=== PATIENT | male | born 1975 | race Caucasian/White ===

== ENCOUNTER 2020-08-23 15:04 | Observation (INO) | payer OTHER ==
[2020-08-23 15:31] LABS: CHLORIDE,CL 106 mEq/L (98-106); SODIUM,NA 142 mEq/L (136-145)
[2020-08-23] MEDS ORDERED: Iopamidol 755 Mg/ML 100 ML Bottle IVPUSH ONE (16:09)
[2020-08-23] MEDS ORDERED: Acetaminophen 325 MG Tab PO PRN (17:17)
[2020-08-23] MEDS ORDERED: Apixaban 5 MG Tab PO ONE (17:30)
[2020-08-23] MEDS: Apixaban 5 MG Tab PO SCH (18:32)
[2020-08-23] MEDS ORDERED: DICLOFENAC SODIUM 100 MG PO SCH (20:00)
[2020-08-24] MEDS ORDERED: Pantoprazole 40 MG Tab.CR PO SCH (07:00)
[2020-08-24 07:43] LABS: CHLORIDE,CL 106 mEq/L (98-106); SODIUM,NA 142 mEq/L (136-145)
[2020-08-24] MEDS ORDERED: Loratadine 10 MG Tab PO SCH (08:00)
[2020-08-24] MEDS: Apixaban 5 MG Tab PO SCH (08:09)
--- NOTE | 2020-08-24 09:25 | PCM.DCSUM1 ---
Discharge Summary - Hospital Course HPI Initial Comments: Armand is a 45 yo male who was seen by Katie Julian yesterday in clinic with concerns of shortness of breath/cold symptoms. He initially thought it was secondary to shoveling soybeans and grain all last week but found with any exertion he would get short of breath. Thorough work up yesterday did show an elevated d-dimer and CTA of the chest completed. CTA did show bilateral pulmonary emboli. Patient was admitted to the hospital for cardiac monitoring and initiation of Eliquis. Echocardiogram ordered, which is to be completed today. Diagnosis: Stroke: No - Discharge Data Discharge Date: 08/24/20 Discharge Disposition: Home, Self-Care 01 Condition: Good - Referral to Home Health Primary Care Physician: Katie Julian PA-C - Discharge Diagnosis/Problem(s) (1) Pulmonary embolism SNOMED Code(s): 87582978 ICD Code: I26.99 - OTHER PULMONARY EMBOLISM WITHOUT ACUTE COR PULMONALE Status: Acute Current Visit: Yes Qualifiers: Pulmonary embolism type: multiple subsegmental (without acute cor pulmonale) Qualified Code(s): I26.94 - Multiple subsegmental pulmonary emboli without acute cor pulmonale - Patient Summary/Data Hospital Course: Armand had an uneventful hospital stay. Vital signs remained stable. No worsening of symptoms. Denies any concerns. REquesting to be discharged today. - Patient Instructions Diet: Usual Diet as Tolerated Activity: As Tolerated - Discharge Plan *PRESCRIPTION DRUG MONITORING PROGRAM REVIEWED*: No *COPY OF PRESCRIPTION DRUG MONITORING REPORT IN PATIENT SHALOM: No Prescriptions/Med Rec: Apixaban [Eliquis] 10 mg PO BID@0800,1800 6 Days #12 tablet Apixaban [Eliquis] 5 mg PO BID #60 tablet Home Medications: Home Meds Cetirizine [ZyrTEC] 10 mg PO DAILY 08/23/20 [History] Diclofenac Sodium [Diclofenac Sodium ER] 100 mg PO BID 08/23/20 [History] Esomeprazole Magnesium [Nexium] 40 mg PO DAILY 08/23/20 [History] Apixaban [Eliquis] 5 mg PO BID #60 tablet 08/24/20 [Rx] Apixaban [Eliquis] 10 mg PO BID@0800,1800 6 Days #12 tablet 08/24/20 [Rx] Oxygen Therapy Mode: Room Air Patient Handouts: Pulmonary Embolism Referrals: Katie Julian PA-C [Primary Care Provider] - (2 weeks) - Discharge Summary/Plan Comment DC Time >30 min.: Yes Discharge Summary/Plan Comment: Echocardiogram to be completed today. Patient has been stable during his entire stay and requesting to be discharged. Will discharge home on Eliquis and did discuss with patient staying on it for 6 months. Will have him follow up with primary provider in 2 weeks. Patient had negative COVID yesterday and currently waiting for PCR test. Will get COVID antibody test as well today. Discussed with Armand common causes of PE's and if no definitive cause is found, will need coagulation testing done. - General Info Date of Service: 08/24/20 - Review of Systems General: Reports: No Symptoms HEENT: Reports: No Symptoms Pulmonary: Reports: No Symptoms. Denies: Shortness of Breath, Cough, Wheezing Cardiovascular: Reports: No Symptoms. Denies: Chest Pain Gastrointestinal: Reports: No Symptoms Genitourinary: Reports: No Symptoms Musculoskeletal: Reports: No Symptoms Skin: Reports: No Symptoms Neurological: Reports: No Symptoms Psychiatric: Reports: No Symptoms - Patient Data Vitals - Most Recent: Last Vital Signs Temp 97.9 F 08/24/20 08:00 Pulse 89 08/24/20 08:00 Resp 16 08/24/20 08:00 BP 137/89 08/24/20 08:00 Pulse Ox 98 08/24/20 08:00 Weight - Most Recent: 235 lb Lab Results - Last 24 hrs: Laboratory Results - last 24 hr 08/23/20 08/23/20 08/23/20 Range/Units 15:00 15:06 15:16 WBC 7.4 (5.0-10.0) 10^3/uL RBC 5.59 (4.50-6.00) 10^6/uL Hgb 16.2 (14.0-18.0) g/dL Hct 49.1 (40.0-54.0) % MCV 87.8 (82.0-94.0) fL MCH 29.0 (27.0-32.0) pg MCHC 33.0 (33.0-38.0) g/dL RDW Coeff of Melina 13.5 (11.0-15.0) % Plt Count 176 (150-400) 10^3/uL Neut % (Auto) 65.0 (35-85) % Lymph % (Auto) 23.5 (10-55) % Yolo % (Auto) 9.7 (0-16) % Eos % (Auto) 1.3 (0-5) % Baso % (Auto) 0.5 (0-3) % Neut # (Auto) 4.81 (1.80-7.00) 10^3/uL Lymph # (Auto) 1.74 (1.00-4.80) 10^3/uL Yolo # (Auto) 0.72 (0.00-0.80) 10^3/uL Eos # (Auto) 0.10 (0.00-0.45) 10^3/uL Baso # (Auto) 0.04 10^3/uL D-Dimer, Quantitative (0.00-0.50) Sodium (136-145) mEq/L Potassium (3.5-5.0) mEq/L Chloride (98-106) mEq/L Carbon Dioxide (21-32) mmol/L BUN (7-18) mg/dL Creatinine (0.7-1.3) mg/dL Est Cr Clr Drug Dosing Estimated GFR (MDRD) (>=60) mL/min Glucose (75-99) mg/dL Calcium (8.4-10.1) mg/dL Total Bilirubin (0.0-1.0) mg/dL AST (15-37) U/L ALT (12-78) U/L Alkaline Phosphatase (46-116) U/L Lactate Dehydrogenase 287 H (100-190) U/L Creatine Kinase 98 (35-232) U/L Troponin I 0.021 (0.00-0.06) ng/mL C-Reactive Protein (0.2-0.8) mg/dL Total Protein (6.4-8.2) g/dL Albumin (3.4-5.0) g/dL SARS CoV-2 RNA Rapid LIAM Negative (NEGATIVE) 08/23/20 08/23/20 08/24/20 Range/Units 15:16 15:16 07:05 WBC 6.0 (5.0-10.0) 10^3/uL RBC 5.35 (4.50-6.00) 10^6/uL Hgb 15.4 (14.0-18.0) g/dL Hct 47.1 (40.0-54.0) % MCV 88.0 (82.0-94.0) fL MCH 28.8 (27.0-32.0) pg MCHC 32.7 L (33.0-38.0) g/dL RDW Coeff of Melina 13.6 (11.0-15.0) % Plt Count 175 (150-400) 10^3/uL Neut % (Auto) 61.8 (35-85) % Lymph % (Auto) 26.1 (10-55) % Y[place] % (Auto) 9.9 (0-16) % Eos % (Auto) 2.0 (0-5) % Baso % (Auto) 0.2 (0-3) % Neut # (Auto) 3.68 (1.80-7.00) 10^3/uL Lymph # (Auto) 1.55 (1.00-4.80) 10^3/uL Yolo # (Auto) 0.59 (0.00-0.80) 10^3/uL Eos # (Auto) 0.12 (0.00-0.45) 10^3/uL Baso # (Auto) 0.01 10^3/uL D-Dimer, Quantitative 7.99 H (0.00-0.50) Sodium 142 (136-145) mEq/L Potassium 4.1 (3.5-5.0) mEq/L Chloride 106 (98-106) mEq/L Carbon Dioxide 28 (21-32) mmol/L BUN 21 H (7-18) mg/dL Creatinine 1.2 (0.7-1.3) mg/dL Est Cr Clr Drug Dosing TNP Estimated GFR (MDRD) > 60 (>=60) mL/min Glucose 95 (75-99) mg/dL Calcium 9.2 (8.4-10.1) mg/dL Total Bilirubin (0.0-1.0) mg/dL AST (15-37) U/L ALT (12-78) U/L Alkaline Phosphatase (46-116) U/L Lactate Dehydrogenase (100-190) U/L Creatine Kinase (35-232) U/L Troponin I (0.00-0.06) ng/mL C-Reactive Protein 2.8 H (0.2-0.8) mg/dL Total Protein (6.4-8.2) g/dL Albumin (3.4-5.0) g/dL SARS CoV-2 RNA Rapid LIAM (NEGATIVE) 08/24/20 Range/Units 07:05 WBC (5.0-10.0) 10^3/uL RBC (4.50-6.00) 10^6/uL Hgb (14.0-18.0) g/dL Hct (40.0-54.0) % MCV (82.0-94.0) fL MCH (27.0-32.0) pg MCHC (33.0-38.0) g/dL RDW Coeff of Melina (11.0-15.0) % Plt Count (150-400) 10^3/uL Neut % (Auto) (35-85) % Lymph % (Auto) (10-55) % Y[place] % (Auto) (0-16) % Eos % (Auto) (0-5) % Baso % (Auto) (0-3) % Neut # (Auto) (1.80-7.00) 10^3/uL Lymph # (Auto) (1.00-4.80) 10^3/uL Y[place] # (Auto) (0.00-0.80) 10^3/uL Eos # (Auto) (0.00-0.45) 10^3/uL Baso # (Auto) 10^3/uL D-Dimer, Quantitative (0.00-0.50) Sodium 142 (136-145) mEq/L Potassium 4.3 (3.5-5.0) mEq/L Chloride 106 (98-106) mEq/L Carbon Dioxide 26 (21-32) mmol/L BUN 23 H (7-18) mg/dL Creatinine 1.1 (0.7-1.3) mg/dL Est Cr Clr Drug Dosing 93.82 Estimated GFR (MDRD) > 60 (>=60) mL/min Glucose 100 H (75-99) mg/dL Calcium 9.0 (8.4-10.1) mg/dL Total Bilirubin 0.5 (0.0-1.0) mg/dL AST 14 L (15-37) U/L ALT 42 (12-78) U/L Alkaline Phosphatase 66 (46-116) U/L Lactate Dehydrogenase (100-190) U/L Creatine Kinase (35-232) U/L Troponin I (0.00-0.06) ng/mL C-Reactive Protein (0.2-0.8) mg/dL Total Protein 7.3 (6.4-8.2) g/dL Albumin 3.7 (3.4-5.0) g/dL SARS CoV-2 RNA Rapid LIAM (NEGATIVE) Med Orders - Current: Current Medications Acetaminophen (Tylenol) 650 mg PO Q4H PRN PRN Reason: Pain (Mild 1-3)/fever Apixaban (Eliquis) 10 mg PO BID@0800,1800 PENDING SALE TO [facility] Stop: 08/30/20 08:01 Last Admin: 08/24/20 08:09 Dose: 10 mg Documented by: Apixaban (Eliquis) 5 mg PO BID PENDING SALE TO [facility] Loratadine (Claritin) 10 mg PO DAILY PENDING SALE TO [facility] Last Admin: 08/24/20 08:09 Dose: 10 mg Documented by: Non-Formulary Medication (Diclofenac Sodium [Diclofenac Sodium Er]) 100 mg PO BID PENDING SALE TO [facility] Pantoprazole Sodium (Protonix) 40 mg PO ACBREAKFAST PENDING SALE TO [facility] Last Admin: 08/24/20 06:52 Dose: 40 mg Documented by: Discontinued Medications Apixaban (Eliquis) 10 mg PO BID ONE Stop: 08/23/20 17:31 Last Admin: 08/23/20 18:11 Dose: Not Given Documented by: Iopamidol (Isovue-370 (76%)) 100 ml IVPUSH ONETIME ONE Stop: 08/23/20 16:10 Last Admin: 08/23/20 16:22 Dose: 100 ml Documented by: - Exam General: Reports: Alert, Oriented, Cooperative, No Acute Distress Lungs: Reports: Clear to Auscultation, Normal Respiratory Effort Cardiovascular: Reports: Regular Rate, Regular Rhythm, No Murmurs GI/Abdominal Exam: Normal Bowel Sounds, Soft Extremities: Normal Inspection, No Pedal Edema Skin: Reports: Warm, Dry, Intact Psy/Mental Status: Reports: Alert, Normal Affect, Normal Mood
[2020-08-30] MEDS ORDERED: Apixaban 5 MG Tab PO SCH (20:00)
== END 2020-08-24 13:14 | disposition home or self-care (01) ==
LOC: CC.FCMC 15:04 → CC.MS 16:28 → UNDOADMOB 16:28 → CC.MS 17:17
PROVIDERS: ADMIT Physician Assistant Medical; ATTEND Family Medicine
DX: I26.94 Multiple subsegmental thrombotic pulmonary emboli without acute cor pulmonale (principal); Z79.899 Other long term (current) drug therapy; Z88.0 Allergy status to penicillin; Z88.1 Allergy status to other antibiotic agents; Z20.828 Contact with and (suspected) exposure to other viral communicable diseases
CPT/HCPCS: 36415; 71046; 71275; 80048; 80053; 82550; 83615; 84484; 85025; 85379; 86140; 86769; 93005; 93306; 93970; A9270-GY; G0378; Q9967; U0002

== ENCOUNTER 2021-02-03 09:29 | Emergency (ER) | payer OTHER ==
[2021-02-03] MEDS ORDERED: Take Home: Sulfamethoxazole/Trimethoprim 800-160 MG Tab, 2 Tab Pack PO ONE (09:55)
[2021-02-03] MEDS ORDERED: Take Home: predniSONE 20 MG, 2 Tab Pack PO ONE (09:55)
--- NOTE | 2021-02-03 10:01 | EDM.PDOC ---
ED HPI GENERAL MEDICAL PROBLEM - General Chief Complaint: General Stated Complaint: Headache Time Seen by Provider: 02/03/21 10:01 Source of Information: Reports: Patient History Limitations: Reports: No Limitations - History of Present Illness INITIAL COMMENTS - FREE TEXT/NARRATIVE: This patient is a 45 year old male that presents to the ER. Patient reports that since Thursday he has had frontal headache, sinus congestion, sinus pressure, bilateral ears clogged, post nasal gtt, with productive cough. Patient denies n, v, d, f, dizziness, chest pain, shortness of breath, rashes, loss of taste, loss of smell. Onset Date: 01/30/21 Duration: Day(s): (4) Location: Reports: Other (Sinuses) Quality: Reports: Pressure Severity: Moderate Improves with: Reports: None Worsens with: Reports: None Associated Symptoms: Reports: Cough, cough w sputum, Headaches (frontal sinus). Denies: Confusion, Chest Pain, Diaphoresis, Fever/Chills, Loss of Appetite, Malaise, Nausea/Vomiting, Rash, Seizure, Shortness of Breath, Syncope, Weakness - Related Data Allergies Allergy/AdvReac Type Severity Reaction Status Date / Time doxycycline Allergy Cannot Verified 08/23/20 17:15 Remember Penicillins Allergy Cannot Verified 08/23/20 17:15 Remember Home Meds: Home Meds Cetirizine [ZyrTEC] 10 mg PO DAILY 08/23/20 [History] Diclofenac Sodium [Diclofenac Sodium ER] 100 mg PO BID 08/23/20 [History] Esomeprazole Magnesium [Nexium] 40 mg PO DAILY 08/23/20 [History] Apixaban [Eliquis] 5 mg PO BID #60 tablet 08/24/20 [Rx] Apixaban [Eliquis] 10 mg PO BID@0800,1800 6 Days #12 tablet 08/24/20 [Rx] Sulfamethoxazole/Trimethoprim [Bactrim Ds Tablet] 1 each PO BID #16 tablet 02/03/21 [Rx] predniSONE [Prednisone] 20 mg PO DAILY #3 tablet 02/03/21 [Rx] Past Medical History Respiratory History: Reports: PE - Past Surgical History Musculoskeletal Surgical History: Reports: Amputation Other Musculoskeletal Surgeries/Procedures:: traumatic amputation of right thumb Social & Family History - Family History Cardiac: Reports: Blood Clots/VTE/DVT ED ROS GENERAL - Review of Systems Review Of Systems: See Below Constitutional: Reports: No Symptoms HEENT: Reports: Rhinitis, Sinus Problem, Other (bilateral ear pressure/clogged) Respiratory: Reports: Cough, Sputum. Denies: Shortness of Breath, Wheezing Cardiovascular: Reports: No Symptoms Endocrine: Reports: No Symptoms GI/Abdominal: Reports: No Symptoms : Reports: No Symptoms Musculoskeletal: Reports: No Symptoms Skin: Reports: No Symptoms Neurological: Reports: No Symptoms Psychiatric: Reports: No Symptoms Hematologic/Lymphatic: Reports: No Symptoms Immunologic: Reports: No Symptoms ED EXAM, GENERAL - Physical Exam Exam: See Below Exam Limited By: No Limitations General Appearance: Alert, WD/WN, No Apparent Distress Eye Exam: Bilateral Eye: Normal Inspection, PERRL Ears: Normal External Exam, Normal Canal, Hearing Grossly Normal, Normal TMs Ear Exam: Bilateral Ear: Auricle Normal, Canal Normal, TM normal Nose: Normal Inspection, Normal Mucosa, No Blood Throat/Mouth: Normal Lips, Normal Teeth, Normal Gums, Normal Oropharynx, Normal Voice, No Airway Compromise, Other (post nasal gtt) Head: Atraumatic, Normocephalic, Sinus Tenderness (frontal mild. ), Other (Decreased light illumination frontal sinus) Neck: Normal Inspection, Supple, Non-Tender, Full Range of Motion Respiratory/Chest: No Respiratory Distress, Lungs Clear, Normal Breath Sounds, No Accessory Muscle Use Cardiovascular: Normal Peripheral Pulses, Regular Rate, Rhythm, No Edema, No Gallop, No JVD, No Murmur, No Rub Peripheral Pulses: 2+: Radial (L), Radial (R) Extremities: Normal Inspection Neurological: Alert, Oriented Psychiatric: Normal Affect, Normal Mood Skin Exam: Warm, Dry, Intact, Normal Color, No Rash Lymphatic: No Adenopathy Course - Orders/Labs/Meds Meds: Medications Discontinued Medications Generic Name Dose Route Start Last Admin Trade Name Freq PRN Reason Stop Dose Admin Prednisone 1 packet 02/03/21 09:55 Take Home: Prednisone 20 Mg, 2 Tab Pack PO 02/03/21 09:56 ONETIME ONE Trimethoprim/Sulfamethoxazole 2 packet 02/03/21 09:55 Take Home: Sulfamethoxazole/Trimethoprim 800-160 Mg Tab, 2 Tab Pack PO 02/03/21 09:56 ONETIME ONE Departure - Departure Time of Disposition: 10:01 Disposition: Home, Self-Care 01 Condition: Fair Clinical Impression: Acute sinusitis Qualifiers: Sinusitis location: frontal Recurrence: non-recurrent Qualified Code(s): J01.10 - Acute frontal sinusitis, unspecified - Discharge Information *PRESCRIPTION DRUG MONITORING PROGRAM REVIEWED*: Not Applicable *COPY OF PRESCRIPTION DRUG MONITORING REPORT IN PATIENT SHALOM: Not Applicable Prescriptions: Sulfamethoxazole/Trimethoprim [Bactrim Ds Tablet] 1 each PO BID #16 tablet predniSONE [Prednisone] 20 mg PO DAILY #3 tablet Instructions: Sinusitis, Adult, [id number] Forms: ED Department Discharge Additional Instructions: Followup with your primary care provider Return to the ER for worsening of condition or any emergent concerns Increase fluid intake Over the counter medications such as Neti Pot, Saline Rinses, Afrin for 3 days only, Mucinex, other medications that meet your symptoms Prednisone 20mg 1 pill once a day for a total of 5 days #2 take home, #3 to pharmacy Bactrim DS 1 pill twice a day for 10 days #4 take home, #16 to pharmacy Avoid public functions until symptoms have improved - Assessment/Plan Plan: PLEASE SEE RN NOTE FOR PFSH
== END 2021-02-03 10:15 | disposition home or self-care (01) ==
LOC: CC.ED 09:29
DX: J01.10 Acute frontal sinusitis, unspecified (principal); Z86.711 Personal history of pulmonary embolism; Z79.01 Long term (current) use of anticoagulants; Z88.1 Allergy status to other antibiotic agents; Z88.0 Allergy status to penicillin
CPT/HCPCS: 99283; A9270; J7512

== ENCOUNTER → 2021-03-21 | Day surgery (SDC) | payer OTHER ==
[~2021-03-21] MED LIST: Dexamethasone 4 MG/ML SDV ONE; Ketorolac 30 MG/ML SDV ONE; Lidocaine 1% with EPINEPHrine 1:100,000 20 ML MDV ONE; Lidocaine 2% 5 ML SDV ONE; Metoclopramide 10 MG/2 ML SDV ONE; Midazolam 1 MG/ML 2 ML SDV ONE; Ondansetron 4 MG/2 ML SDV ONE; Phenylephrine 1% 10 MG/ML SDV ONE; Propofol 200 MG/20 ML SDV ONE; fentaNYL 100 MCG/2 ML SDV ONE
[2021-03-21] MEDS: Lactated Ringers 1,000 ML IV SCH (09:35)
[2021-03-21] MEDS: Clindamycin Phosphate in D5W 600 MG in Premix Bag 1 BAG IV ONE ×2 (09:54)
--- NOTE | 2021-03-21 13:23 | OR ---
DATE OF OPERATION: 03/21/2021 PREOPERATIVE DIAGNOSIS: UMBILICAL HERNIA. POSTOPERATIVE DIAGNOSIS: UMBILICAL HERNIA. SURGEON: Armand Barrera MD PROCEDURE: OPEN REPAIR OF UMBILICAL HERNIA. ANESTHESIA: General. ESTIMATED BLOOD LOSS: None. SPECIMEN: Preperitoneal fat. INDICATIONS: This 45-year-old male has a symptomatic umbilical hernia. DESCRIPTION OF PROCEDURE: After adequate preparation, a longitudinal incision was made superior to the umbilicus area. This was taken down to the hernia sac which was dissected free from the surrounding subcutaneous tissue. The preperitoneal herniated specimen was amputated at the level of the fascia and then the fascia was closed using two interrupted 0 Prolene sutures. 3-0 Vicryl was used for the subcutaneous tissue and 4-0 Vicryl was used for the skin. 1% Xylocaine with epinephrine was infiltrated into the skin and muscle. BPB/MODL /[id number]
== END ==
LOC: CC.SDS 09:12
PROVIDERS: ATTEND Surgery
DX: K42.9 Umbilical hernia without obstruction or gangrene (principal); K21.9 Gastro-esophageal reflux disease without esophagitis; M06.9 Rheumatoid arthritis, unspecified; Z88.8 Allergy status to other drugs, medicaments and biological substances; Z88.0 Allergy status to penicillin; Z79.899 Other long term (current) drug therapy; Z79.01 Long term (current) use of anticoagulants
CPT/HCPCS: 00750; J1100; J1885; J2250; J2370; J2405; J2704; J2765; J3010; J3490; J7120

== ENCOUNTER 2024-10-14 07:39 | Day surgery (SDC) | payer BC ==
[2024-10-14] MEDS: Lactated Ringers 1,000 ML IV SCH (08:06)
[2024-10-14] MEDS ORDERED: Flumazenil 0.1 MG/ML 10 ML MDV ONE (08:10)
[2024-10-14] MEDS ORDERED: Ketamine 200 MG/20 ML MDV ONE (08:10)
[2024-10-14] MEDS ORDERED: fentaNYL 50 MCG/ML SDV ONE (08:10)
[2024-10-14] MEDS ORDERED: Propofol 200 MG/20 ML SDV ONE (08:10)
[2024-10-14] MEDS ORDERED: Midazolam 1 MG/ML 2 ML SDV ONE (08:10)
== END 2024-10-14 09:20 | disposition home or self-care (01) ==
LOC: CC.SDS 07:39
PROVIDERS: ATTEND Family Medicine
DX: Z12.11 Encounter for screening for malignant neoplasm of colon (principal); K21.9 Gastro-esophageal reflux disease without esophagitis; M45.9 Ankylosing spondylitis of unspecified sites in spine; M06.9 Rheumatoid arthritis, unspecified; J30.9 Allergic rhinitis, unspecified; Z79.899 Other long term (current) drug therapy; Z88.8 Allergy status to other drugs, medicaments and biological substances; Z88.0 Allergy status to penicillin
CPT/HCPCS: J2250; J2704; J3010; J3490; J7120